=== PATIENT | male | born 1965 | race Caucasian/White ===

== ENCOUNTER 2018-03-29 08:42 | Emergency (ER) | payer OTHER ==
[2018-03-29 09:34] VITALS: BP 106/58
--- NOTE | 2018-03-29 10:51 | UC ---
Skin Complaint HPI - HPI Summary HPI Summary: The patient is a 53-year-old male that removed a tick from his abdomen this morning. He is unsure how long the tick was attached. He has a history of Lyme disease. He was diagnosed last summer. He states she has chronic joint and muscle aches since the age of 21. He requests another test for Lyme disease since his arthralgias have markedly increased the past couple weeks. - History of Current Complaint Chief Complaint: UCSkin Time Seen by Provider: 03/29/18 10:44 Stated Complaint: TICK BITE Hx Obtained From: Patient Current Severity: None Pain Intensity: 9 - joints - Allergy/Home Medications Allergies/Adverse Reactions: Allergies Allergy/AdvReac Type Severity Reaction Status Date / Time No Known Allergies Allergy Verified 03/29/18 09:31 Home Medications: Home Medications Cyclobenzaprine TAB* [Flexeril 10 MG TAB*] 10 mg PO BID PRN 03/29/18 [History Confirmed 03/29/18] Meloxicam [Mobic] 15 mg PO DAILY 03/29/18 [History Confirmed 03/29/18] Review of Systems Constitutional: Negative Skin: Negative Eyes: Negative ENT: Negative Respiratory: Negative Cardiovascular: Negative Gastrointestinal: Negative Genitourinary: Negative Motor: Negative Neurovascular: Negative Musculoskeletal: Arthralgia Neurological: Negative Psychological: Negative Is Patient Immunocompromised?: No All Other Systems Reviewed And Are Negative: Yes PMH/Surg Hx/FS Hx/Imm Hx Previously Healthy: Yes - Surgical History Surgical History: None - Family History Known Family History: Positive: Hypertension - Social History Alcohol Use: Weekly Substance Use Type: Marijuana Smoking Status (MU): Current Some Day Smoker Physical Exam Triage Information Reviewed: Yes Appearance: Well-Appearing, No Pain Distress, Well-Nourished Vital Signs: Initial Vital Signs Temp 97.5 F 03/29/18 09:28 Pulse 66 03/29/18 09:28 Resp 16 03/29/18 09:28 BP 106/58 03/29/18 09:28 Pulse Ox 100 03/29/18 09:28 Eyes: Positive: Conjunctiva Clear ENT: Negative: Nasal congestion, Nasal drainage, Trismus, Muffled voice, Hoarse voice Respiratory: Positive: Lungs clear, Normal breath sounds, No respiratory distress, No accessory muscle use Cardiovascular: Positive: RRR, No Murmur Musculoskeletal: Positive: ROM Intact, No Edema Neurological: Positive: Alert Psychological Exam: Normal Skin Exam: Other - mount part of tick noted left lower abd Course/Dx - Diagnoses Provider Diagnoses: tick bite Discharge - Sign-Out/Discharge Documenting (check all that apply): Patient Departure All imaging exams completed and their final reports reviewed: No Studies - Discharge Plan Condition: Stable Disposition: HOME Prescriptions: DOXYcycline CAP(*) [DOXYcycline 100MG CAP(*)] 200 mg PO BID #20 cap Patient Education Materials: Tick Bite (ED) Referrals: No Primary Care Phys,NOPCP [Primary Care Provider] - Additional Instructions: see specialist about chronic pain as planned lyme test pending - Billing Disposition and Condition Condition: STABLE Disposition: Home
== END 2018-03-29 11:25 | disposition home or self-care (01) ==
LOC: UCEAST 08:42
DX: S30.861A Insect bite (nonvenomous) of abdominal wall, initial encounter (principal); F17.200 Nicotine dependence, unspecified, uncomplicated; W57.XXXA Bitten or stung by nonvenomous insect and other nonvenomous arthropods, initial encounter; Y92.9 Unspecified place or not applicable
CPT/HCPCS: 99212; G0463